=== PATIENT | female | born 1955 | race Hispanic/Latino ===

== ENCOUNTER 2016-05-28 11:14 | Day surgery (SDC) | payer BC ==
[~2016-05-28 11:14] MED LIST: IOPIDINE OS ONE; MYDRIACYL 1% OS ONE; NEOFRIN OS ONE
[2016-05-28] MEDS ORDERED: MYDRIACYL 1% OS ONE (12:05)
[2016-05-28] MEDS ORDERED: NEOFRIN OS ONE (12:05)
[2016-05-28] MEDS ORDERED: IOPIDINE OS ONE (12:05)
[2016-05-28 13:03] VITALS: BP 147/68
== END 2016-05-28 11:15 | disposition home or self-care (01) ==
LOC: OR 11:14
PROVIDERS: ATTEND Specialist
DX: H26.492 Other secondary cataract, left eye (principal); I10 Essential (primary) hypertension; E78.00 Pure hypercholesterolemia, unspecified; K21.9 Gastro-esophageal reflux disease without esophagitis; Z98.41 Cataract extraction status, right eye; Z98.42 Cataract extraction status, left eye